=== PATIENT | female | born 1990 | race Caucasian/White ===

== ENCOUNTER 2017-03-20 08:07 | Emergency (ER) | payer BC, MEDICAID ==
[2017-03-20] MEDS ORDERED: ONDANSETRON 4 MG TAB.RAPDIS PO ONE (09:01)
--- NOTE | 2017-03-20 09:06 | ERNOTE ---
Medical Problem HPI - General Chief Complaint: Nausea/Vomiting Time Seen by Provider: 03/20/17 08:54 Source: patient Exam Limitations: no limitations - Immun/Allergies/Home Medications Immunizations: IMMUNIZATION HX Immunizations Up to Date Yes History of Influenza Vaccine Yes Allergies/Adverse Reactions: Allergies gluten Allergy (Intermediate, Verified 03/20/17 08:22) Other abdominal pain, nausea, vomitting, diarrhea Home Medications: HOME MEDICATIONS Nitrofurantoin/Nitrofuran Mac [Macrobid] 100 mg PO Q12H #14 cap 03/20/17 [Last Taken Unknown] Ondansetron [Zofran Odt] 4 mg PO Q4H PRN #10 tab 03/20/17 [Last Taken Unknown] Venlafaxine HCl [Effexor Xr] 37.5 mg PO DAILY 03/20/17 [Last Taken Unknown] l-Norgest/E.estradiol-E.estrad [Seasonique 0.15-0.03-0.01 Tab] 1 each PO DAILY 03/20/17 [Last Taken Unknown] - History of Present History Narrative: Patient has had intermittent nausea and vomiting for a month. She usually vomits in the morning and lots of times when she lays down at night, has been able to keep some food and liquids down during the day. She is concerned that she might be getting dehydrated as she has been dry heaving all night. She also had watery diarrhea 2-3 times per day, he abdomen 'is sore from vomiting' but no significant pain. She from her fiancee six weeks ago and that has been very stressful, she also fund out that he gave her chlamydia and was treated for that with oral meds a month ago. Review of Systems - Review of Systems Constitutional: Absent: recent illness EYE: Absent: vision changes ENT: Absent: sore throat Respiratory: Absent: shortness of breath Cardiology: Absent: chest pain Gastrointestinal/Abdominal: Present: See HPI, nausea, vomiting, diarrhea, abdominal pain Genitourinary: Present: decreased urinary output Skin: Absent: rash Neurological: Absent: headache Psych: Present: anxiety - Patient's Past Medical History Patient History - Medical: Depression Patient History - Cardiac/Respiratory: No pertinent hx Patient History - Cancer: No Hx of Cancer Patient History - Surgical Procedures: No surgical history Patient History - Other: None LMP (females 10-50): 2 months LMP (Calendar): 01/28/17 - switched to 3 months controll - Family History Mother Family History - Medical: Family History - Cardiac/Respiratory: Pneumonia - Social History Living Situations: home Abuse History: No History of abuse Psych History: Hx of Depression Smoking Status: Never smoker Have you smoked in the past 12 months: No Drug Use: none - Immunizations Immunizations Up to Date: Yes History of Influenza Vaccine: Yes Physical Exam - Physical Exam General Appearance: Present: wd/wn, alert, no apparent distress Eye Exam: Normal inspection: bilateral, PERRL: bilateral Ears, Nose, Throat: Present: normal ENT inspection, normal pharynx Neck: Absent: lymphadenopathy (R), lymphadenopathy (L) Respiratory: Present: no respiratory distress, normal breath sounds, no accessory muscle use, lungs clear Cardiovascular/Chest: Present: regular rate, rhythm, no murmur Gastrointestinal/Abdominal: Present: normal bowel sounds, nontender, nondistended, soft Back Exam: Present: no CVA tenderness Neurological Exam: Present: alert, oriented, normal mood/affect Skin Exam: Present: normal color, warm/dry ED Progress - Results and Orders Patient's Lab Results:: I have reviewed the patient's lab results. - Vital Signs Patient's Vital Signs:: I have reviewed the patient's vital signs. Vital Signs: Vital Signs 03/20/17 08:18 Temperature 36.8 C Pulse Rate 66 Respiratory 16 Rate Blood Pressure 132/77 O2 Sat by Pulse 98 Oximetry - Progress/Reassessment Chief Complaint: Nausea/Vomiting Progress Note-Subjective: 03/20/17 09:59 tolerated water after zofran, discussed test results and diagnosis of UTI, chlamydia pending Departure Clinical Impression: UTI (urinary tract infection) Qualifiers: Urinary tract infection type: acute cystitis Hematuria presence: without hematuria Qualified Code(s): N30.00 - Acute cystitis without hematuria - Departure Disposition: Home self-care Condition: Good Instructions: Urinary Tract Infection, Adult, [id number], Form - Excuse from Work, School, or Physical Activity Referrals: Pura Meraz FNP [Primary Care Provider] - Prescriptions: Nitrofurantoin/Nitrofuran Mac [Macrobid] 100 mg PO Q12H #14 cap Ondansetron [Zofran Odt] 4 mg PO Q4H PRN #10 tab PRN Reason: Nausea And Vomiting
[2017-03-20] MEDS ORDERED: ONDANSETRON 4 MG TAB.RAPDIS ONE (09:18)
[2017-03-20 09:21] LABS: Hematocrit 40.3 % (37.0-47.0); Hemoglobin 13.9 gm/dL (12.5-16.0); Mean Cell Volume 92.2 fl (78-100); Mean Corpuscular Hemoglobin 31.8 pg (27-31); Mean Corpuscular Hgb Conc 34.5 g/dl (32-36); Mean Platelet Volume 10.1 fl (6.0-9.5); Neutrophil # 4.1 K/mm3 (1.3-6.0); Neutrophil % 67.3 % (42-75.0); Platelet Count 277 K/mm3 (150-450); Red Blood Count 4.37 M/mm3 (4.2-5.4); Red Cell Distribution Width 12.2 % (11.5-14.0)
[2017-03-20 09:32] LABS: Urine Bilirubin 1 mg/dl (NEGATIVE); Urine Blood 50 /ul (NEGATIVE); Urine Ketone Negative (NEGATIVE); Urine Nitrite Negative (NEGATIVE); Urine Protein 15 mg/dL (NEGATIVE); Urine Specific Gravity >=1.030 SP.GR. (1.005-1.010); Urine Urobilinogen Normal (NORMAL)
[2017-03-20 09:35] LABS: Albumin * 3.9 gm/dl (3.4-5.0); BUN/Creatinine Ratio 12.9 (9.0-21.6); Bilirubin, Total 0.7 mg/dL (0.0-1.1); Ca. Corrected For Albumin 8.8 mg/dL (8.4-10.2); Total Protein 7.6 gm/dL (6.2-8.2)
[2017-03-20 09:39] VITALS: BP 124/75
[2017-03-20 09:46] LABS: Urine Appearance Slightly Cloudy; Urine Bacteria 3+; Urine Color Dark Yellow; Urine Fine Granular Cast 0-5 /LPF; Urine Mucus Moderate - 2+
== END 2017-03-20 10:05 | disposition home or self-care (01) ==
LOC: ER 08:07
DX: N30.00 Acute cystitis without hematuria (principal)